=== PATIENT | male | born 1990 | race Caucasian/White ===

== ENCOUNTER 2020-04-25 13:04 | Emergency (ER) | payer SELFPAY ==
[2020-04-25 13:08] VITALS: BP 126/84; PULSE 63; RESP 16; TEMP 36.4; O2SAT 98; BMI 25.7
--- NOTE | 2020-04-25 13:18 | ED.EYEPROB ---
HPI - Eye Problem <DEL Orozco - Last Filed: 04/25/20 17:00> General Chief complaint: Eye Problems Stated complaint: rt eye problem Time Seen by Provider: 04/25/20 13:12 Source: patient Mode of arrival: Ambulatory History of Present Illness HPI Narrative: 29yo male presents to the emergency department complaining of getting fertilizer in his right eye approximately less than an hour ago, patient states it was [employer] 25-3-10. Patient reports that he washed his eye out for 30 minutes, he states it still continues to sting. Patient reports his eye stings but denies any vision changes such as double vision or blurry vision. Patient denies wearing glasses or contacts. He states he thought he saw a small black object in his eye was unsure of the cause of foreign body. Patient denies any other symptoms such as headache, chest pain, fevers, chills, shortness of breath, or any other concerns. Related Data Previous Rx's Medication Instructions Recorded erythromycin 0.5 inch EYE-RIGHT DAILY 7 Days 04/25/20 #3.5 gram Allergies Allergy/AdvReac Type Severity Reaction Status Date / Time Penicillins Allergy Severe Hives Verified 04/25/20 13:10 Review of Systems <DEL Orozco - Last Filed: 04/25/20 17:00> Review of Systems Narrative: REVIEW OF SYSTEMS: GENERAL: Denies fever or chills. HENT: No head trauma, hearing loss, or sore throat. EYES: Complains of eye irritation, see HPI. NECK/LYMPHATIC: No lymphadenopathy. CARDIOVASCULAR: No chest pain. RESPIRATORY: No cough or shortness of breath. INTEGUMENTARY: No rash, lesions, or pruritus. NEURO: No headaches or confusion. Patient History <DEL Orozco - Last Filed: 04/25/20 17:00> Medical History No significant medical problems (Acute) Social History Smoking Status: Current every day smoker Smoking Status: Current every day smoker Substance Use Type: marijuana Exam <DEL Orozco - Last Filed: 04/25/20 17:00> Initial Vital Signs Initial Vital Signs: Vital Signs Temperature 97.6 F 04/25/20 13:08 Pulse Rate 63 04/25/20 13:08 Respiratory Rate 16 04/25/20 13:08 Blood Pressure 126/84 04/25/20 13:08 Pulse Oximetry 98 04/25/20 13:08 PHYSICAL EXAMINATION: GENERAL: Well groomed, alert, and cooperative. Answers questions promptly and appropriately. Vital signs noted. HENT: Normocephalic, atraumatic. Hearing intact. Oral mucosa is pink and moist. Face features symmetrical. EYES: PERRLA, EOMIs, right conjunctiva slightly injected on the lateral aspect of the eye. No foreign bodies or ulcerations with and without fluorescein examination. Eye was examined before and after irrigation. PH prior to eye irrigation: 7 PH after eye irrigation: 7 Visual acuity: Bilateral 20/30, R20/20, L20/20. CARDIOVASCULAR: S1 and S2 sounds normal. Regular rate and rhythm. RESPIRATORY: Normal respiratory rate, trachea midline, airway patent. No stridor, nasal flaring or accessory muscle use. Lungs are clear in all leon without wheeze, rhonchi, or crackles. MUSCULOSKELETAL: Normal gait and coordination. Equal tone and mass bilaterally. SKIN: Warm, dry, soft, appropriate color for ethnicity. NEURO: Alert and Oriented X 3. Good coordination. PSYCH: Appropriate affect and mood. <Emerson Soares DO - Last Filed: 04/25/20 17:04> Initial Vital Signs Initial Vital Signs: Vital Signs Temperature 97.6 F 04/25/20 13:08 Pulse Rate 63 04/25/20 13:08 Respiratory Rate 16 04/25/20 13:08 Blood Pressure 126/84 04/25/20 13:08 Pulse Oximetry 98 04/25/20 13:08 Course <DEL Orozco - Last Filed: 04/25/20 17:00> Course Course Narrative: I spoke with Dr. Rodrigues, cable armorer operator, we discussed patient's symptoms, history, and plan of care. She suggested erythromycin ointment and re-evaluation if symptoms continue given pH is 7 pre and post irrigation. Orders Ordered: Discontinued Medications Fluorescein Sodium (Ful-Sandra) 1 mg EYE-RIGHT NOW ONE Stop: 04/25/20 13:18 Last Admin: 04/25/20 13:26 Dose: 1 mg Documented by: DICK Proparacaine HCl (Parcaine 0.5% Ophth Jeanette) 1 drops EYE-RIGHT NOW ONE Stop: 04/25/20 13:18 Last Admin: 04/25/20 13:26 Dose: 1 drop Documented by: DICK Consultations Consultation #1: Patient staffed with Dr Soares discussed patient's symptoms and plan of care. Vital Signs Vital signs: Vital Signs - 8 hr 04/25/20 13:08 Temperature 97.6 F Pulse Rate 63 Respiratory Rate 16 Blood Pressure 126/84 Pulse Oximetry 98 <Emerson Soares DO - Last Filed: 04/25/20 17:04> Orders Ordered: Discontinued Medications Fluorescein Sodium (Ful-Sandra) 1 mg EYE-RIGHT NOW ONE Stop: 04/25/20 13:18 Last Admin: 04/25/20 13:26 Dose: 1 mg Documented by: DICK Proparacaine HCl (Parcaine 0.5% Ophth Jeanette) 1 drops EYE-RIGHT NOW ONE Stop: 04/25/20 13:18 Last Admin: 04/25/20 13:26 Dose: 1 drop Documented by: DICK Vital Signs Vital signs: Vital Signs - 8 hr 04/25/20 13:08 Temperature 97.6 F Pulse Rate 63 Respiratory Rate 16 Blood Pressure 126/84 Pulse Oximetry 98 MDM - Eye Problem <DEL Orozco - Last Filed: 04/25/20 17:00> Medical Records Attestation: I reviewed the patient's medical records. Lab Data Attestation: I reviewed the patient's lab results. MDM Narrative Medical decision making narrative: 29-year-old male presents emergency department complaining of getting fertilizer in his right eye. Even after a Internet search it was difficult to determine if further lies her was an acid or base. However, Patient extensively irrigated his eye before coming to the emergency room, pH initially was adequate at 7. No foreign bodies were visualized upon extensive examination. No abrasions with fluorescein dye. Patient's eye was irrigated for 20 minutes in the emergency department, pH remained 7 post irrigation. Patient was given erythromycin ointment after consultation with the cable armorer operator for continued treatment and resolution of pain. Strict follow-up instructions were discussed. Return precautions given for new or worsening symptoms. Patient agreed to plan of care verbalized understanding. Discharge Plan Departure Patient Disposition: Home Clinical Impression: Chemical injury of eye Qualifiers: Encounter type: initial encounter Laterality: right Qualified Code(s): T26.91XA - Corrosion of right eye and adnexa, part unspecified, initial encounter Discharge Date/Time: 04/25/20 14:27 Instructions: DI for Chemical Eye Burn Activity Restrictions/Additional Instructions: Thank you for entrusting me with your care today. As discussed, your eye has been irrigated. I have given you prescription for an antibiotic ointment. Please apply this 4 times today and then daily at night for a week. Follow up with an eye doctor if you need your vision cleared for work or if irritation continues. No foreign bodies or ulcerations were found on your exam today. Return emergency department for any new or worsening symptoms such as severe eye pain, double vision, blurred vision, headaches, or any other concerns. Prescriptions: New erythromycin 5 mg/gram (0.5 %) ointment 0.5 inch EYE-RIGHT DAILY 7 Days Qty: 3.5 RF: 0 <Emerson Soares, DO - Last Filed: 04/25/20 17:04> Cosign ED Attending Cosignature Attestation: Dr Soares Co-Sign Statement: I was available for consultation during this patient's emergency department visit. This chart is signed by myself for administrative purposes only. I did not have direct contact with this patient during this visit. They were seen independently by the APC.
[2020-04-25] MEDS: FLUORESCEIN 1 MG STRIP EYE-RIGHT (13:26)
[2020-04-25] MEDS: PROPARACAINE 0.5% OPHTH SOL 1 DROPS EYE-RIGHT (13:26)
== END 2020-04-25 14:27 | disposition home or self-care (01) ==
PROVIDERS: Emergency Provider Nurse Practitioner
DX: T26.91XA Corrosion of right eye and adnexa, part unspecified, initial encounter (principal); W45.8XXA Other foreign body or object entering through skin, initial encounter
CPT/HCPCS: 99283; 99284